=== PATIENT | female | born 1950 | race Caucasian/White ===

== ENCOUNTER 2023-04-01 21:13 | Emergency (ER) | payer MEDICARE, OTHER ==
[2023-04-01] MEDS ORDERED: Diphtheria,Pertussis(Acell),Tetanus Vaccine 0.5 ML Syringe IM ONE (22:44)
[2023-04-01] MEDS ORDERED: Bacitracin Oint 1 GM U/D Packet TOP ONE (22:56)
== END 2023-04-01 23:52 | disposition home or self-care (01) ==
LOC: JP.ED 21:13
DX: S61.452A Open bite of left hand, initial encounter (principal); Z23 Encounter for immunization; W54.0XXA Bitten by dog, initial encounter
CPT/HCPCS: 12001; 90471; 90715; 99283-25